=== PATIENT | female | born 1995 | race Caucasian/White ===

== ENCOUNTER 2016-04-20 18:51 | Emergency (ER) | payer OTHER ==
[2016-04-20 20:16] VITALS: BP 133/82; PULSE 96; RESP 18; TEMP 98.1; O2SAT 100
--- NOTE | 2016-04-20 22:07 | UCPHY ---
H & P Time Seen by Provider: 04/20/16 20:53 Patient Type: New HPI/ROS: 20-year-old female presents complaining of 3 months of left knee pain, usually is worse when getting out of bed walking up and down stairs, with movement issues however over the last couple days it seems to be markedly worse. In the past she has tried ibuprofen however not recently and feels that does not work for her. No calf swelling no calf pain no shortness of breath No known injury. Review of systems General no fever no chills no weakness HEENT no eye pain no eye discharge. No eye redness, no sore throat Respiratory no cough, no shortness of breath Cardiac no chest pain, no peripheral edema GI no abdominal pain, no diarrhea, no constipation, no nausea, no vomiting no flank pain, no hematuria, no dysuria Musculoskeletal no myalgias, positive joint pain Heme no easy bruising, no easy bleeding Endo no polyuria, no polydipsia Skin no rashes, no pruritus Neuro no syncope, no dizziness, no headaches Psych is no suicidal ideation, no homicidal ideation Past Medical/Surgical History: Noncontributory Social History: Alcohol socially, denies drug use Smoking Status: Never smoked Physical Exam: 20-year-old female alert and oriented no acute distress nontoxic appearance afebrile Alert and oriented in no acute distress nontoxic appearance, afebrile Atraumatic normocephalic Neck no JVD Lungs clear to auscultation, no respiratory distress Heart regular rate and rhythm Extremities no cyanosis clubbing edema Left lower extremity No swelling, no edema, no ecchymosis no deformity Left knee no laxity, tenderness palpation along infrapatellar tibial line No effusions Good range of motion Gait intact Constitutional: Initial Vital Signs Temperature (C) 36.7 C 04/20/16 20:13 Heart Rate 96 04/20/16 20:13 Respiratory Rate 18 04/20/16 20:13 Blood Pressure 133/82 H 04/20/16 20:13 O2 Sat (%) 100 04/20/16 20:13 O2 Delivery Mode Room Air Allergies/Adverse Reactions: No Known Allergies Allergy (Unverified 04/20/16 20:12) Home Medications: Medication Instructions Recorded NK [No Known Home Meds] 04/20/16 Medical Decision Making - Diagnostics Imaging: X-ray negative of knee ED Course/Re-evaluation: Patient seen evaluated for knee pain of approximately 3 months duration Physical exam as documented, no pertinent positives X-ray negative Impression Knee pain Plan Knee brace Follow up with Orthopedics Anti-inflammatory as needed ice elevate - Data Points Medications Given: Discontinued Medications Hydrocodone Bitart/Acetaminophen ([place] 5/325mg Prepack#6) 1 btl TAKEHOME [facility] ONE Stop: 04/20/16 22:28 Last Admin: 04/20/16 22:27 Dose: 1 btl Departure - Departure Disposition: Home, Routine, Self-Care Clinical Impression: Left knee pain Condition: Good Instructions: Knee Pain (ED) Referrals: NONE *PRIMARY CARE P,. [Primary Care Provider] - As per Instructions Eva Calderon MD [Medical Doctor] - As per Instructions - PQRS PQRS Measurement: na
[2016-04-20] MEDS ORDERED: HYDROCOD/APAP 5/325 PREPACK#6 BTL TAKEHOME ONE ×2 (22:24→22:27)
== END 2016-04-20 22:28 | disposition home or self-care (01) ==
LOC: CED 18:51
DX: M25.562 Pain in left knee (principal)
CPT/HCPCS: 73562-PO; G0463-PO; L1830